=== PATIENT | female | born 1970 | race Caucasian/White ===

== ENCOUNTER 2018-06-15 20:39 | Emergency (ER) | payer MEDICAID ==
[~2018-06-15] VITALS: Ht 160 cm; Wt 135.0 kg
--- NOTE | 2018-06-15 21:42 | NUR ---
first contact with pt. pt c/o right ankle pain/swelling x 20 days and getting worse. pt is able to amb with pain. pt states sprained right ankle last week. pt denies any other s/s at this time. pt aox4. resps even and unlabored. bp/spo2 monitors in place. call light within reach.
[2018-06-15 22:28] VITALS: BP 107/47
--- NOTE | 2018-06-15 22:31 | NUR ---
PRECEPTOR NOTE: AIR STIRRUP APPLIED TO RIGHT ANKLE BY EDT, CMS INTACT S/P APPLICATION. PT PROVIDED WITH FITTED CRUTCHES, DEMONSTRATES APPROPRIATE USE AFTER RN EDUCATION. PT GIVEN DC INSTRUCTIONS AND RX. PT EDUCATED REGARDING DC RX FOR NAPROXEN. PT WHEELED TO DC WITH IN WHEELCHAIR. ALL QUESTIONS ANSWERED. CONRADN AT DC.
== END 2018-06-15 22:30 | disposition home or self-care (01) ==
LOC: ED 22:09
DX: M25.571 Pain in right ankle and joints of right foot (principal)
CPT/HCPCS: 99283